=== PATIENT | female | born 2000 | race Caucasian/White ===

== ENCOUNTER 2022-02-04 20:00 | Inpatient (IN) | payer MEDICAID, OTHER, SELFPAY ==
[2022-02-05] MEDS ORDERED: Bupivacaine/Epinephrine 0.25% 30 ML VIAL ONE (08:00)
[2022-02-05 09:48] VITALS: BMI 29.8
[2022-02-05] MEDS ORDERED: Misoprostol 200 MCG TAB PR PRN (10:24)
[2022-02-05] MEDS ORDERED: Carboprost 250 MCG/ML AMP IM PRN (10:24)
[2022-02-05] MEDS ORDERED: Lactated Ringer's 1,000 ML IV SCH (10:24)
[2022-02-05] MEDS ORDERED: Promethazine HCl 25 MG/ML VIAL IM PRN ×2 (10:24→19:52)
[2022-02-05] MEDS ORDERED: NS w/ Oxytocin 30 units 500 ML IV SCH (10:24)
[2022-02-05] MEDS ORDERED: Diphenoxylate HCl/Atropine Tablet PO PRN (10:24)
[2022-02-05] MEDS ORDERED: Ondansetron PF 4 MG/2 ML Vial IVP PRN ×2 (10:24→19:52)
[2022-02-05] MEDS ORDERED: HYDROcodone/Acetaminophen 5/325 mg Tablet PO PRN (10:24)
[2022-02-05] MEDS ORDERED: Acetaminophen 500 MG TAB PO PRN (10:24)
[2022-02-05] MEDS ORDERED: Lidocaine 1% (PF) 30 ML VIAL SC PRN (10:24)
[2022-02-05] MEDS ORDERED: Ibuprofen 800 MG TAB PO PRN (10:24)
[2022-02-05] MEDS ORDERED: hydrALAZINE 20 MG/ML VIAL SLOW IVP PRN (10:24)
[2022-02-05] MEDS ORDERED: Methylergonovine 0.2 MG/ML VIAL IM PRN (10:24)
[2022-02-05] MEDS ORDERED: Butorphanol Tartrate 1 MG/ML VIAL SLOW IVP PRN (10:24)
[2022-02-05] MEDS ORDERED: Misoprostol 100 MCG TAB ONE (10:35)
[2022-02-05] MEDS: Misoprostol 100 MCG TAB VAG SCH ×2 (10:37→13:32)
[2022-02-05 10:39] LABS: Hemoglobin 11.8 g/dL (12.0-15.5); Mean Corpuscular HGB CONC 35.2 g/dL (32.0-36.0); Mean Corpuscular Hemoglobin 33.2 pg (27.0-33.0); Mean Corpuscular Volume 94.4 fl (81.6-98.3); Mean Platelet Volume 11.2 fl (7.4-10.4); Platelet Count 190 10x3/uL (150-450); RBC Distribution Width 12.4 % (11.5-14.5); Red Blood Cell (RBC) Count 3.55 10x6/uL (3.90-5.03); White Blood Cell (WBC) Count 7.1 10x3/uL (3.5-10.5)
[2022-02-05 11:05] LABS: Hep B Surf Ag Non-Reactive S/CO (NonReactive); Syphilis Antibody Nonreactive (Nonreactive); Syphilis Antibody Index 0.03 S/CO (<1.00 Non-Reactive)
[2022-02-05 11:20] LABS: HBSAg Index 0.13 S/CO (0-0.99)
[2022-02-05] MEDS: NS w/ Oxytocin 30 units 500 ML IV SCH ×2 (18:23→21:41)
[2022-02-05] MEDS ORDERED: Fentanyl 2 mcg/Bup 0.1% Cadd 100 ML ONE (19:10)
[2022-02-05] MEDS ORDERED: ePHEDrine Sulfate 50 MG/10 ML VIAL SLOW IVP PRN (19:52)
[2022-02-05] MEDS ORDERED: diphenhydrAMINE 50 MG/ML VIAL IVP PRN (19:52)
[2022-02-05] MEDS ORDERED: Lactated Ringer's 500 ML IV PRN (19:52)
[2022-02-05] MEDS ORDERED: Naloxone HCl 0.4 mg/ml Vial IVP PRN ×2 (19:52)
[2022-02-05] MEDS ORDERED: Acetaminophen 325 MG TAB PO PRN (19:52)
[2022-02-05] MEDS ORDERED: Hydrocerin (Eucerin) Cream 120 gm Jar TOP PRN (19:52)
[2022-02-05] MEDS ORDERED: Communication Order-Pharmacy FS SCH (20:00)
[2022-02-05] MEDS ORDERED: Fentanyl 2 mcg/Bupivacaine 0.1% Cassette 100 ML EPIDURAL SCH (20:00)
[2022-02-06] MEDS ORDERED: Benzocaine-Menthol 82.5 ML CAN TOP PRN (00:54)
[2022-02-06] MEDS ORDERED: Ondansetron PF 4 MG/2 ML Vial IVP PRN (00:54)
[2022-02-06] MEDS ORDERED: Lanolin Ointment 7 GM TUBE TOP PRN (00:54)
[2022-02-06] MEDS ORDERED: Boostrix 0.5 ML (Tdap) VIAL IM ONE (00:54)
[2022-02-06] MEDS ORDERED: hydrALAZINE 20 MG/ML VIAL SLOW IVP PRN (00:54)
[2022-02-06] MEDS ORDERED: Bisacodyl 10 MG SUPP PR PRN (00:54)
[2022-02-06] MEDS ORDERED: diphenhydrAMINE 25 MG CAP PO PRN (00:54)
[2022-02-06] MEDS ORDERED: Milk Of Magnesia 30 ML UDCUP PO PRN (00:54)
[2022-02-06] MEDS ORDERED: NS w/ Oxytocin 30 units 500 ML IV SCH (00:54)
[2022-02-06] MEDS ORDERED: HYDROcodone/Acetaminophen 5/325 mg Tablet PO PRN ×2 (00:54)
[2022-02-06] MEDS ORDERED: Promethazine HCl 25 MG/ML VIAL IM PRN (00:54)
[2022-02-06] MEDS: Misoprostol 100 MCG TAB VAG SCH (05:31)
[2022-02-06] MEDS: Ibuprofen 800 MG TAB PO SCH ×4 (05:32→21:01)
[2022-02-06] MEDS: Ferrous Sulfate 325 MG TAB PO SCH ×2 (08:21→18:13)
[2022-02-06] MEDS: Prenatal Vitamin 1 TAB PO SCH (09:06)
[2022-02-06] MEDS: Docusate 100 MG CAP PO SCH ×2 (09:06→21:01)
[2022-02-07] MEDS: Ibuprofen 800 MG TAB PO SCH (05:58)
[2022-02-07 08:03] VITALS: BP 115/67; TEMP 97.5
[2022-02-07] MEDS: Docusate 100 MG CAP PO SCH (08:05)
[2022-02-07] MEDS: Prenatal Vitamin 1 TAB PO SCH (08:05)
[2022-02-07] MEDS: Ferrous Sulfate 325 MG TAB PO SCH (09:25)
== END 2022-02-07 13:05 | disposition home or self-care (01) | DRG 807 ==
LOC: CSHLD 02-05 09:07 → CSHPP 02-06 00:15
PROVIDERS: ADMIT Family Medicine; ATTEND Family Medicine
PROC: 10E0XZZ Delivery of Products of Conception, External Approach (ICD-10-PCS; principal; 2022-02-05)
PROC: 0KQM0ZZ Repair Perineum Muscle, Open Approach (ICD-10-PCS; 2022-02-05)
PROC: 3E0P7VZ Introduction of Hormone into Female Reproductive, Via Natural or Artificial Opening (ICD-10-PCS; 2022-02-05)
PROC: 10907ZC Drainage of Amniotic Fluid, Therapeutic from Products of Conception, Via Natural or Artificial Opening (ICD-10-PCS; 2022-02-05)
DX: O70.1 Second degree perineal laceration during delivery (principal); Z37.0 Single live birth; Z3A.39 39 weeks gestation of pregnancy
CPT/HCPCS: 51702; 85027; 86780; 86850; 86900; 86901; 87340; J2590

== ENCOUNTER 2023-05-31 04:37 | Inpatient (IN) | payer MEDICAID, OTHER, SELFPAY ==
[2023-05-31 05:00] VITALS: BMI 31.4
[2023-05-31] MEDS: Lactated Ringer's 1,000 ML IV SCH ×2 (05:35→21:26)
[2023-05-31] MEDS ORDERED: Misoprostol 200 MCG TAB PR PRN (05:59)
[2023-05-31] MEDS ORDERED: Methylergonovine 0.2 MG/ML VIAL IM PRN ×2 (06:00→15:14)
[2023-05-31 06:02] LABS: Hematocrit 36.2 % (34.9-44.5); Hemoglobin 12.6 g/dL (12.0-15.5); Mean Corpuscular HGB CONC 34.8 g/dL (32.0-36.0); Mean Corpuscular Hemoglobin 34.1 pg (27.0-33.0); Mean Corpuscular Volume 97.8 fl (81.6-98.3); Mean Platelet Volume 10.8 fl (7.4-10.4); Platelet Count 188 10x3/uL (150-450); RBC Distribution Width 12.4 % (11.5-14.5)
[2023-05-31] MEDS ORDERED: Tranexamic Acid 1,000 MG/10 ML VIAL IVP PRN (06:09)
[2023-05-31] MEDS ORDERED: fentaNYL 50 mcg/mL 1 mL Vial SLOW IVP PRN (06:10)
[2023-05-31] MEDS ORDERED: Lidocaine 1% (PF) 30 ML VIAL SC PRN (06:15)
[2023-05-31] MEDS ORDERED: Acetaminophen 500 MG TAB PO PRN (06:15)
[2023-05-31] MEDS ORDERED: Oxytocin 30 units/NS 500 ML 500 ML IV SCH (06:15)
[2023-05-31] MEDS ORDERED: Oxytocin 30 units/NS 500 ML 500 ML IVPB SCH (06:15)
[2023-05-31] MEDS ORDERED: Promethazine HCl 25 MG/ML VIAL IM PRN ×3 (06:15→15:14)
[2023-05-31] MEDS ORDERED: HYDROcodone/Acetaminophen 5/325 mg Tablet PO PRN ×3 (06:15→15:14)
[2023-05-31] MEDS ORDERED: Carboprost 250 MCG/ML AMP IM PRN (06:15)
[2023-05-31] MEDS ORDERED: Diphenoxylate HCl/Atropine Tablet PO PRN ×2 (06:15)
[2023-05-31] MEDS ORDERED: hydrALAZINE 20 MG/ML VIAL SLOW IVP PRN ×2 (06:15→15:14)
[2023-05-31] MEDS ORDERED: Ondansetron PF 4 MG/2 ML Vial IVP PRN ×3 (06:15→15:14)
[2023-05-31] MEDS ORDERED: Ibuprofen 800 MG TAB PO PRN (06:15)
[2023-05-31 06:33] LABS: HBSAg Index 0.18 S/CO (0-0.99); Hep B Surf Ag - L&D Non-Reactive S/CO (NonReactive)
[2023-05-31 06:34] LABS: Syphilis Antibody Nonreactive (Nonreactive); Syphilis Antibody Index 0.02 S/CO (<1.00 Non-Reactive)
[2023-05-31] MEDS ORDERED: Bupivacaine 0.25% HCL 30 ML VIAL ONE (08:00)
[2023-05-31] MEDS ORDERED: fentaNYL/Ropivacaine Epidural 100 ML ONE (10:43)
[2023-05-31] MEDS ORDERED: Lactated Ringer's 500 ML IV PRN (11:22)
[2023-05-31] MEDS ORDERED: Moisturizing Cream (Eucerin) 113 GM JAR TOP PRN (11:22)
[2023-05-31] MEDS ORDERED: Acetaminophen 325 MG TAB PO PRN (11:22)
[2023-05-31] MEDS ORDERED: diphenhydrAMINE 50 MG/ML VIAL IVP PRN (11:22)
[2023-05-31] MEDS ORDERED: Naloxone HCl 0.4 mg/ml Vial IVP PRN ×2 (11:22)
[2023-05-31] MEDS ORDERED: ePHEDrine Sulfate 50 MG/10 ML VIAL SLOW IVP PRN (11:22)
[2023-05-31] MEDS ORDERED: fentaNYL 2 mcg/Ropivacaine 0.2% Epidural 100 ML CADD EPIDURAL SCH (11:30)
[2023-05-31] MEDS ORDERED: Communication Order-Pharmacy FS SCH (11:30)
[2023-05-31] MEDS ORDERED: diphenhydrAMINE 25 MG CAP PO PRN (15:14)
[2023-05-31] MEDS ORDERED: Boostrix 0.5 ML (Tdap) VIAL (>/=7 yrs of age) IM ONE (15:14)
[2023-05-31] MEDS ORDERED: Milk Of Magnesia 30 ML UDCUP PO PRN (15:14)
[2023-05-31] MEDS ORDERED: Lanolin Ointment 7 GM TUBE TOP PRN (15:14)
[2023-05-31] MEDS ORDERED: Bisacodyl 10 MG SUPP PR PRN (15:14)
[2023-05-31] MEDS ORDERED: Ferrous Sulfate 325 MG TAB PO SCH (17:00)
[2023-05-31] MEDS: Docusate 100 MG CAP PO SCH (20:02)
[2023-05-31] MEDS: Ibuprofen 800 MG TAB PO SCH (21:15)
[2023-06-01] MEDS: Ibuprofen 800 MG TAB PO SCH (05:06)
[2023-06-01] MEDS ORDERED: Prenatal Vitamin 1 TAB PO SCH (09:00)
[2023-06-01] MEDS: Docusate 100 MG CAP PO SCH (09:11)
[2023-06-01 12:22] VITALS: BP 121/62; TEMP 98.1
== END 2023-06-01 16:30 | disposition home or self-care (01) | DRG 807 ==
LOC: CSHLD/OP 04:37 → CSHLD 05:44 → CSHPP 15:05
PROVIDERS: ADMIT Family Medicine; ATTEND Family Medicine
PROC: 10E0XZZ Delivery of Products of Conception, External Approach (ICD-10-PCS; principal; 2023-05-31)
DX: O42.02 Full-term premature rupture of membranes, onset of labor within 24 hours of rupture (principal); Z37.0 Single live birth; Z3A.38 38 weeks gestation of pregnancy
CPT/HCPCS: 36415; 51702; 85027; 86780; 86850; 86900; 86901; 87340; 99285; J2590; S0020